=== PATIENT | female | born 1970 | race Caucasian/White ===

== ENCOUNTER 2022-03-21 10:55 | Outpatient (CLI) | payer BC ==
[2022-03-21 12:32] LABS: Hemoglobin 13.2 g/dL (12.0-15.5); Mean Corpuscular HGB CONC 33.5 g/dL (32.0-36.0); Mean Corpuscular Hemoglobin 29.5 pg (27.0-33.0); Mean Corpuscular Volume 88.1 fl (81.6-98.3); Mean Platelet Volume 12.3 fl (7.4-10.4); Platelet Count 221 10x3/uL (150-450); RBC Distribution Width 13.1 % (11.5-14.5); Red Blood Cell (RBC) Count 4.47 10x6/uL (3.90-5.03); White Blood Cell (WBC) Count 8.4 10x3/uL (3.5-10.5)
[2022-03-21 12:40] LABS: Anion Gap 15 mmol/L (10-20); BUN (Urea Nitrogen) 24 mg/dL (7.0-18.7); Calc. Creatinine Clearance 0 mL/min (70-130); Calcium 9.7 mg/dL (7.8-10.44); Carbon Dioxide 27 mmol/L (22-29); Chloride 102 mmol/L (98-107); Estimated GFR 77; Glucose 75 mg/dL (70-105); Potassium 4.4 mmol/L (3.5-5.1); Sodium 140 mmol/L (136-145)
== END 2022-03-21 10:56 | disposition home or self-care (01) ==
LOC: CSHLAB 10:55
PROVIDERS: ATTEND Podiatrist Foot & Ankle Surgery
DX: Z01.812 Encounter for preprocedural laboratory examination (principal); M21.612 Bunion of left foot
CPT/HCPCS: 80048; 85027

== ENCOUNTER 2022-03-24 10:09 | Day surgery (SDC) | payer BC ==
[2022-03-23 08:49] VITALS: BMI 26.1
[2022-03-24] MEDS ORDERED: Bupivacaine PF 0.5% 30 ML VIAL ONE (11:53)
[2022-03-24] MEDS ORDERED: Neomycin-Polymyxin 1 ML AMP ONE (11:53)
[2022-03-24] MEDS ORDERED: PROPOFOL 20 ML ONE (11:55)
[2022-03-24] MEDS ORDERED: Fentanyl 100 MCG/2 ML VIAL ONE ×2 (11:55→12:30)
[2022-03-24] MEDS ORDERED: Lidocaine 1% PF 5 ML VIAL ONE (11:56)
[2022-03-24] MEDS ORDERED: CEFAZOLIN 2 GM VIAL ONE (12:03)
[2022-03-24] MEDS ORDERED: Ondansetron PF 4 MG/2 ML Vial ONE (12:28)
[2022-03-24] MEDS ORDERED: Dexamethasone 4 mg/ml Vial ONE (12:28)
[2022-03-24] MEDS ORDERED: Ketorolac Tromethamine 30 MG/ML VIAL ONE (13:36)
== END 2022-03-24 15:00 | disposition home or self-care (01) ==
LOC: CSHSDC 10:09
PROVIDERS: ATTEND Podiatrist Foot & Ankle Surgery
PROC: 0QBN0Z2 Excision of Right Metatarsal, Sesamoid Bone(s) 1st Toe, Open Approach (ICD-10-PCS; principal; 2022-03-24)
PROC: 0QSN04Z Reposition Right Metatarsal with Internal Fixation Device, Open Approach (ICD-10-PCS; principal; 2022-03-24)
DX: M21.611 Bunion of right foot (principal); M20.11 Hallux valgus (acquired), right foot
CPT/HCPCS: C1713; J1100; J1885; J2405; J2704; J3010; S0020

== ENCOUNTER 2022-06-14 09:58 | Outpatient (CLI) | payer BC | END 2022-06-14 09:59 | disposition home or self-care (01) | LOC: CSHMAMMO 09:58 | PROVIDERS: ATTEND Internal Medicine Rheumatology | DX: M81.0 Age-related osteoporosis without current pathological fracture (principal); M85.851 Other specified disorders of bone density and structure, right thigh; M85.852 Other specified disorders of bone density and structure, left thigh | CPT/HCPCS: 77080 ==

== ENCOUNTER 2023-07-02 11:56 | Outpatient (CLI) | payer BC | END 2023-07-02 11:57 | disposition home or self-care (01) | LOC: CSHRAD 11:56 | PROVIDERS: ATTEND Physician Assistant Medical | DX: K59.09 Other constipation (principal) | CPT/HCPCS: 74018 ==

== ENCOUNTER 2023-07-06 14:02 | Outpatient (CLI) | payer BC | END 2023-07-06 14:03 | disposition home or self-care (01) | LOC: CSHRAD 14:02 | PROVIDERS: ATTEND Physician Assistant Medical | DX: K59.09 Other constipation (principal) | CPT/HCPCS: 74018 ==

== ENCOUNTER 2024-02-08 11:26 | Outpatient (CLI) | payer BC | END 2024-02-08 11:27 | disposition home or self-care (01) | LOC: CSHMRI 11:26 | PROVIDERS: ATTEND Family Medicine | DX: M25.561 Pain in right knee (principal); M22.8X1 Other disorders of patella, right knee; S83.203S Other tear of unspecified meniscus, current injury, right knee, sequela ==